=== PATIENT | male | born 1970 | race Caucasian/White ===

== ENCOUNTER 2021-08-02 12:12 | Inpatient (IN) | payer OTHER ==
[2021-08-02 12:50] VITALS: BMI 25.0
[2021-08-02] MEDS ORDERED: BISMUTH SUBSALICYLATE 524 MG/30 ML PO PRN (13:01)
[2021-08-02] MEDS ORDERED: BUPRENORPHINE HCL 150 MCG, BUPRENORPHINE HCL 75 MCG BC ONE (13:01)
[2021-08-02] MEDS ORDERED: NALOXONE HCL (KLOXXADO) 8 MG SPRAY NS PRN (13:01)
[2021-08-02] MEDS ORDERED: BUPRENORPHINE HCL 150 MCG, BUPRENORPHINE HCL 75 MCG BC PRN (13:01)
[2021-08-02] MEDS ORDERED: ONDANSETRON *ODT* 4 MG TABLET SL PRN (13:01)
[2021-08-02] MEDS ORDERED: MAG HYDROX/AL HYDROX/SIMETH 30 ML UNIT-DOSE CUP PO PRN (13:01)
[2021-08-02] MEDS ORDERED: MAGNESIUM HYDROX 2400MG/30ML ORAL SUSPENSION 30 ML CUP PO PRN (13:01)
[2021-08-02] MEDS ORDERED: NICOTINE 10 MG CARTRIDGE (INHALER) IH PRN (13:01)
[2021-08-02] MEDS ORDERED: MAGNESIUM CITRATE 300 ML BOTTLE PO PRN (13:01)
[2021-08-02] MEDS ORDERED: cloNIDine HCL 0.1 MG TABLET PO ONE (13:01)
[2021-08-02] MEDS ORDERED: DICYCLOMINE HCL 10 MG CAPSULE PO PRN (13:01)
[2021-08-02] MEDS ORDERED: LOPERAMIDE HCL 2 MG CAPSULE PO PRN (13:01)
[2021-08-02] MEDS ORDERED: IBUPROFEN 400 MG TABLET (FP) PO PRN (13:01)
[2021-08-02] MEDS ORDERED: BENZOCAINE/MENTHOL (CHLORASEPTIC ) LOZENGE MM PRN (13:01)
[2021-08-02] MEDS ORDERED: ACETAMINOPHEN 325 MG TABLET (FP) PO PRN ×2 (13:01)
[2021-08-02] MEDS ORDERED: BUPRENORPHINE HCL 75 MCG FILM BC ONE (13:07)
[2021-08-02] MEDS ORDERED: BUPRENORPHINE HCL 150 MCG FILM BC ONE (13:07)
[2021-08-02] MEDS: PRENATAL VITAMINS W/ FOLIC ACID TABLET (FP) PO SCH (14:17)
[2021-08-02] MEDS: hydrOXYzine PAMOATE 25 MG CAPSULE (FP) PO SCH ×3 (14:17→22:21)
[2021-08-02 17:56] LABS: HEMOGLOBIN 12.3 GM/dL (11.7-16.9); MCH 30.8 pg (25.7-33.7); MEAN CELL VOLUME 90.5 fl (80-96); PLATELET COUNT 361 10^3/uL (134-434); RBC 3.98 M/mm3 (4.00-5.60); RDW 13.8 % (11.9-15.9); WHITE BLOOD COUNT 8.4 K/mm3 (4.0-10.0)
[2021-08-02 18:27] LABS: ALBUMIN 3.5 g/dl (3.4-5.0); BLOOD UREA NITROGEN 15.8 mg/dL (7-18)
[2021-08-02 18:32] LABS: BILIRUBIN,TOTAL 0.2 mg/dL (0.2-1); TOT PROT 7.2 g/dl (6.4-8.2)
[2021-08-02] MEDS: THIAMINE HCL 100 MG TABLET (FP) PO SCH (22:21)
[2021-08-02] MEDS: MELATONIN 5 MG TABLETS PO SCH (22:21)
[2021-08-02] MEDS: diazePAM 5 MG TABLET PO PRN (22:22)
[2021-08-03] MEDS ORDERED: BUPRENORPHINE HCL 150 MCG, BUPRENORPHINE HCL 75 MCG BC PRN
[2021-08-03] MEDS ORDERED: BUPRENORPHINE HCL 150 MCG FILM BC ONE ×3 (02:54→16:46)
[2021-08-03] MEDS ORDERED: BUPRENORPHINE HCL 75 MCG FILM BC ONE ×3 (02:55→16:46)
[2021-08-03] MEDS: METHOCARBAMOL 500 MG TABLET PO PRN ×2 (02:57→11:20)
[2021-08-03] MEDS: hydrOXYzine PAMOATE 25 MG CAPSULE (FP) PO SCH ×5 (05:50→22:33)
[2021-08-03] MEDS: BUPRENORPHINE HCL 150 MCG, BUPRENORPHINE HCL 75 MCG BC SCH ×2 (05:50→17:57)
[2021-08-03] MEDS: IBUPROFEN 600 MG TABLET (FP) PO PRN (05:51)
[2021-08-03] MEDS: diazePAM 5 MG TABLET PO PRN ×3 (09:17→22:35)
[2021-08-03] MEDS: cloNIDine HCL 0.1 MG TABLET PO PRN (11:20)
[2021-08-03] MEDS: PRENATAL VITAMINS W/ FOLIC ACID TABLET (FP) PO SCH (11:21)
[2021-08-03] MEDS: NICOTINE 14 MG/24 HOURS TOPICAL PATCH TD SCH (11:22)
[2021-08-03] MEDS: THIAMINE HCL 100 MG TABLET (FP) PO SCH (22:33)
[2021-08-03] MEDS: MELATONIN 5 MG TABLETS PO SCH (22:33)
[2021-08-04] MEDS: hydrOXYzine PAMOATE 25 MG CAPSULE (FP) PO SCH ×5 (05:15→23:21)
[2021-08-04] MEDS: BUPRENORPHINE HCL 450 MCG FILM BC SCH ×2 (05:15→17:43)
[2021-08-04] MEDS: METHOCARBAMOL 500 MG TABLET PO PRN ×2 (07:29→20:47)
[2021-08-04] MEDS: cloNIDine HCL 0.1 MG TABLET PO PRN ×3 (07:29→20:46)
[2021-08-04] MEDS: IBUPROFEN 600 MG TABLET (FP) PO PRN (07:29)
[2021-08-04] MEDS: NICOTINE 14 MG/24 HOURS TOPICAL PATCH TD SCH (10:19)
[2021-08-04] MEDS: PRENATAL VITAMINS W/ FOLIC ACID TABLET (FP) PO SCH (10:19)
[2021-08-04] MEDS: diazePAM 5 MG TABLET PO PRN (10:20)
[2021-08-04] MEDS ORDERED: valACYclovir HCL 500 MG TABLET (FP) PO ONE (11:00)
[2021-08-04] MEDS: MELATONIN 5 MG TABLETS PO SCH (23:21)
[2021-08-04] MEDS: THIAMINE HCL 100 MG TABLET (FP) PO SCH (23:21)
[2021-08-05] MEDS: METHOCARBAMOL 500 MG TABLET PO PRN (01:47)
[2021-08-05] MEDS: BUPRENORPHINE/NALOXONE 4 MG/1 MG FILM PACKET SL SCH ×2 (05:30→17:43)
[2021-08-05] MEDS: hydrOXYzine PAMOATE 25 MG CAPSULE (FP) PO SCH ×5 (05:32→22:54)
[2021-08-05] MEDS: NICOTINE 14 MG/24 HOURS TOPICAL PATCH TD SCH (11:30)
[2021-08-05] MEDS: PRENATAL VITAMINS W/ FOLIC ACID TABLET (FP) PO SCH (11:30)
[2021-08-05] MEDS: THIAMINE HCL 100 MG TABLET (FP) PO SCH (22:54)
[2021-08-05] MEDS: MELATONIN 5 MG TABLETS PO SCH (22:55)
[2021-08-05] MEDS: cloNIDine HCL 0.1 MG TABLET PO PRN (22:55)
[2021-08-06] MEDS: hydrOXYzine PAMOATE 25 MG CAPSULE (FP) PO SCH ×2 (05:42→11:11)
[2021-08-06] MEDS ORDERED: BUPRENORPHINE/NALOXONE 8 MG/2 MG FILM PACKET SL ONE (06:00)
[2021-08-06 09:22] VITALS: BP 127/78; PULSE 82; TEMP 97.5
[2021-08-06] MEDS: NICOTINE 14 MG/24 HOURS TOPICAL PATCH TD SCH (11:10)
[2021-08-06] MEDS: PRENATAL VITAMINS W/ FOLIC ACID TABLET (FP) PO SCH (11:11)
== END 2021-08-06 11:35 | disposition home or self-care (01) | DRG 773 ==
LOC: YASAS 12:12 → Y6N 13:13
PROVIDERS: ADMIT Allergy & Immunology; ATTEND Surgery
PROC: HZ2ZZZZ Detoxification Services for Substance Abuse Treatment (ICD-10-PCS; principal; 2021-08-02)
DX: F11.23 Opioid dependence with withdrawal (principal); F14.20 Cocaine dependence, uncomplicated; F17.213 Nicotine dependence, cigarettes, with withdrawal; F41.1 Generalized anxiety disorder; B00.9 Herpesviral infection, unspecified; Z86.19 Personal history of other infectious and parasitic diseases; Z56.0 Unemployment, unspecified; Z59.00 Homelessness unspecified
CPT/HCPCS: 36415; 80053; 82962; 85027; 86593; 86780; 87811; 93005; 93010; C9803-CS; J0735; U0003; U0005